=== PATIENT | male | born 1970 | race Caucasian/White ===

== ENCOUNTER 2023-11-26 03:53 | Emergency (ER) | payer OTHER ==
[2023-11-26 04:18] VITALS: PULSE 81; RESP 20; TEMP 98.9; BMI 34.4
[2023-11-26] MEDS ORDERED: AMOX TR/POT CLAV 875MG/125MG TABLETS (FP) ONE (04:59)
[2023-11-26] MEDS: AMOX TR/POT CLAV 875MG/125MG TABLETS (FP) PO ONE (05:02)
[2023-11-26 05:06] VITALS: BP 170/80
== END 2023-11-26 05:06 | disposition home or self-care (01) ==
LOC: JER 03:53
DX: K08.89 Other specified disorders of teeth and supporting structures (principal)
CPT/HCPCS: 99283-25